=== PATIENT | female | born 1960 | race Two or more races ===

== ENCOUNTER 2019-09-20 09:58 | Outpatient (CLI) | payer OTHER | END 2019-09-20 10:01 | disposition home or self-care (01) | LOC: RX STUDY 09:58 | DX: R13.12 Dysphagia, oropharyngeal phase (principal) ==

== ENCOUNTER 2021-05-22 07:42 | Outpatient (CLI) | payer OTHER | END 2021-05-22 07:47 | disposition home or self-care (01) | LOC: RX STUDY 07:42 | PROVIDERS: ATTEND Internal Medicine Hepatology | DX: K22.89 Other specified disease of esophagus (principal) ==

== ENCOUNTER 2021-11-12 09:55 | Outpatient (CLI) | payer OTHER | END 2021-11-12 09:58 | disposition home or self-care (01) | LOC: SONOGRAMA 09:55 | PROVIDERS: ATTEND Pathology Anatomic Pathology & Clinical Pathology | DX: E04.9 Nontoxic goiter, unspecified (principal) ==

== ENCOUNTER → 2022-03-13 08:00 | Outpatient (CLI) | payer OTHER ==
[~2022-03-13] VITALS: Ht 154.9 cm; Wt 53.5 kg
[~2022-03-13 08:00] MED LIST: AMLODIPINE BESYL5 MG; AMLODIPINE-OLM1 EACH PO; AMOX-CLAV 875-1 EACH PO; CELEBREX200MG PO; CEVIMELINE HCL30 MG; DAFLONEX-XL 11300 MG; DSS100 MG; ESOMEPRAZOLE MA40 MG; FAMO PO; FAMOTIDINE40 MG PO; GABAPENTIN100 M2; INTEGRA CAPSUL1 EACH; LEVO-T25 MCG; MAXIMUM D3325 MCG; OMEPRAZOLE40 MG; PROAIR RESPICL90 MCG IH; PROTONIX40 M1 PO; ZOLPIDEM TARTRA10 MG PO; [UNRECOGNIZED DRUG - OTHER] PO
== END | disposition home or self-care (01) ==
LOC: LAB 08:00 → ADM 10:45 → SURG 03-15 07:00 → CIR.AMB 03-15 10:45 → EDSTATUS 03-15 10:45 → EDBD 03-15 10:45
PROVIDERS: ATTEND Surgery
DX: Z20.822 Contact with and (suspected) exposure to COVID-19 (principal); Z03.818 Encounter for observation for suspected exposure to other biological agents ruled out

== ENCOUNTER 2022-04-22 15:01 | Inpatient (IN) | payer OTHER ==
[~2022-04-22] VITALS: Ht 127 cm; Wt 54.4 kg
[~2022-04-22 15:01] MED LIST changes: -AMLODIPINE BESYL5 MG; -AMOX-CLAV 875-1 EACH PO; -CEVIMELINE HCL30 MG; -DAFLONEX-XL 11300 MG; -DSS100 MG; -ESOMEPRAZOLE MA40 MG; -FAMOTIDINE40 MG PO; -GABAPENTIN100 M2; -INTEGRA CAPSUL1 EACH; -LEVO-T25 MCG; -MAXIMUM D3325 MCG; -OMEPRAZOLE40 MG; -PROAIR RESPICL90 MCG IH
[2022-04-26] MEDS ORDERED: MAXIMUM D3325 MCG (11:28)
[2022-04-26] MEDS ORDERED: GABAPENTIN100 M2 (11:28)
[2022-04-26] MEDS ORDERED: FAMOTIDINE40 MG PO (11:28)
[2022-04-26] MEDS ORDERED: DAFLONEX-XL 11300 MG (11:29)
[2022-04-26] MEDS ORDERED: ESOMEPRAZOLE MA40 MG (11:29)
[2022-04-26] MEDS ORDERED: OMEPRAZOLE40 MG (11:29)
[2022-04-26] MEDS ORDERED: DSS100 MG (11:29)
[2022-04-26] MEDS ORDERED: CEVIMELINE HCL30 MG (11:29)
[2022-04-26] MEDS ORDERED: INTEGRA CAPSUL1 EACH (11:29)
[2022-04-26] MEDS ORDERED: AMLODIPINE BESYL5 MG (11:29)
[2022-04-26] MEDS ORDERED: LEVO-T25 MCG (11:29)
[2022-05-02] MEDS ORDERED: PROAIR RESPICL90 MCG IH (11:25)
[2022-05-02] MEDS ORDERED: AMOX-CLAV 875-1 EACH PO (11:26)
== END 2022-05-02 13:02 | disposition home or self-care (01) | DRG 327 ==
LOC: SURG 04-26 06:49 → O/R 04-26 06:49 → SURG 04-26 10:30
PROVIDERS: ADMIT Surgery; ATTEND Surgery
PROC: 0DQ60ZZ Repair Stomach, Open Approach (ICD-10-PCS; principal; 2022-04-27)
PROC: 0DQP0ZZ Repair Rectum, Open Approach (ICD-10-PCS; 2022-04-27)
PROC: 0DN80ZZ Release Small Intestine, Open Approach (ICD-10-PCS; 2022-04-27)
PROC: 0DNW0ZZ Release Peritoneum, Open Approach (ICD-10-PCS; 2022-04-27)
PROC: 0DTJ0ZZ Resection of Appendix, Open Approach (ICD-10-PCS; 2022-04-27)
PROC: 0WJG4ZZ Inspection of Peritoneal Cavity, Percutaneous Endoscopic Approach (ICD-10-PCS; 2022-04-27)
PROC: 4A12X4Z Monitoring of Cardiac Electrical Activity, External Approach (ICD-10-PCS; 2022-04-27)
DX: K62.3 Rectal prolapse (principal); E87.20 Acidosis, unspecified; J95.4 Chemical pneumonitis due to anesthesia; R09.02 Hypoxemia; K57.30 Diverticulosis of large intestine without perforation or abscess without bleeding; T41.0X5A Adverse effect of inhaled anesthetics, initial encounter; E83.51 Hypocalcemia; R15.9 Full incontinence of feces; R19.4 Change in bowel habit; R19.7 Diarrhea, unspecified; K66.0 Peritoneal adhesions (postprocedural) (postinfection); K38.9 Disease of appendix, unspecified; Z20.822 Contact with and (suspected) exposure to COVID-19; I10 Essential (primary) hypertension; K29.50 Unspecified chronic gastritis without bleeding; L94.0 Localized scleroderma [morphea]; Z53.31 Laparoscopic surgical procedure converted to open procedure

== ENCOUNTER 2022-09-23 10:54 | Emergency (ER) | payer OTHER ==
[~2022-09-23] VITALS: Ht 149.9 cm; Wt 51.7 kg
[~2022-09-23 10:54] MED LIST changes: +AMLODIPINE BESYL5 MG; +AMOX-CLAV 875-1 EACH PO; +CEVIMELINE HCL30 MG; +DAFLONEX-XL 11300 MG; +DSS100 MG; +ESOMEPRAZOLE MA40 MG; +FAMOTIDINE40 MG PO; +GABAPENTIN100 M2; +INTEGRA CAPSUL1 EACH; +LEVO-T25 MCG; +MAXIMUM D3325 MCG; +OMEPRAZOLE40 MG; +PROAIR RESPICL90 MCG IH
== END 2022-09-23 16:53 | disposition home or self-care (01) ==
LOC: ER 10:54
DX: R60.0 Localized edema (principal)

== ENCOUNTER 2022-11-15 17:19 | Inpatient (IN) | payer OTHER ==
[~2022-11-15] VITALS: Ht 127 cm; Wt 45.4 kg
[2022-11-17] MEDS ORDERED: FUROSEMIDE20 MG PO (10:39)
[2022-11-17] MEDS ORDERED: VALSARTAN40 MG PO (10:40)
== END 2022-11-17 12:48 | disposition home or self-care (01) | DRG 392 ==
LOC: ER 17:19 → MEDI 22:33
PROVIDERS: ADMIT Surgery; ATTEND Surgery
PROC: BW21ZZZ Computerized Tomography (CT Scan) of Abdomen and Pelvis (ICD-10-PCS; principal; 2022-11-15)
PROC: B246ZZZ Ultrasonography of Right and Left Heart (ICD-10-PCS; 2022-11-15)
PROC: 3E0F7SF Introduction of Other Gas into Respiratory Tract, Via Natural or Artificial Opening (ICD-10-PCS; 2022-11-16)
DX: K59.09 Other constipation (principal); K56.609 Unspecified intestinal obstruction, unspecified as to partial versus complete obstruction; R60.0 Localized edema; R09.02 Hypoxemia; R79.89 Other specified abnormal findings of blood chemistry; I11.0 Hypertensive heart disease with heart failure; I50.9 Heart failure, unspecified; E87.6 Hypokalemia; M34.9 Systemic sclerosis, unspecified; I73.00 Raynaud's syndrome without gangrene; Z20.822 Contact with and (suspected) exposure to COVID-19; Z87.891 Personal history of nicotine dependence

== ENCOUNTER 2023-02-05 11:46 | Inpatient (IN) | payer OTHER ==
[~2023-02-05] VITALS: Ht 129.5 cm; Wt 44.5 kg
[~2023-02-05 11:46] MED LIST changes: +FUROSEMIDE20 MG PO; +VALSARTAN40 MG PO
[2023-02-05] MEDS ORDERED: JARDIANCE10 MG PO (12:02)
[2023-02-07] MEDS ORDERED: POTASSIUM CHLOR8 MEQ (13:48)
[2023-02-11] MEDS ORDERED: PEPCID AC20 MG PO (10:03)
[2023-02-11] MEDS ORDERED: INTESTINEX680 M1 PO (10:03)
== END 2023-02-11 10:52 | disposition home or self-care (01) | DRG 392 ==
LOC: ER 11:46 → SURH 18:11
PROVIDERS: ADMIT Surgery; ATTEND Surgery
PROC: 0D9670Z Drainage of Stomach with Drainage Device, Via Natural or Artificial Opening (ICD-10-PCS; 2023-02-05)
PROC: BW21YZZ Computerized Tomography (CT Scan) of Abdomen and Pelvis using Other Contrast (ICD-10-PCS; 2023-02-05)
PROC: 3E0F7SF Introduction of Other Gas into Respiratory Tract, Via Natural or Artificial Opening (ICD-10-PCS; 2023-02-05)
PROC: 3E0336Z Introduction of Nutritional Substance into Peripheral Vein, Percutaneous Approach (ICD-10-PCS; 2023-02-06)
PROC: 0DJD8ZZ Inspection of Lower Intestinal Tract, Via Natural or Artificial Opening Endoscopic (ICD-10-PCS; principal; 2023-02-07)
DX: K31.0 Acute dilatation of stomach (principal); K63.89 Other specified diseases of intestine; R14.0 Abdominal distension (gaseous); K59.09 Other constipation; M34.89 Other systemic sclerosis

== ENCOUNTER → 2023-04-01 | Outpatient (CLI) | payer OTHER ==
[~2023-04-01] MED LIST changes: +INTESTINEX680 M1 PO; +JARDIANCE10 MG PO; +PEPCID AC20 MG PO; +POTASSIUM CHLOR8 MEQ
== END | disposition home or self-care (01) ==
LOC: RAD 10:33
DX: M50.90 Cervical disc disorder, unspecified, unspecified cervical region (principal); M51.36 Other intervertebral disc degeneration, lumbar region; M41.30 Thoracogenic scoliosis, site unspecified; M79.18 Myalgia, other site; M17.10 Unilateral primary osteoarthritis, unspecified knee

== ENCOUNTER 2023-04-18 08:07 | Outpatient (CLI) | payer OTHER | END 2023-04-18 08:16 | disposition home or self-care (01) | LOC: TOM 08:07 | PROVIDERS: ATTEND Surgery | DX: K62.89 Other specified diseases of anus and rectum (principal); R15.9 Full incontinence of feces; K62.3 Rectal prolapse; K57.30 Diverticulosis of large intestine without perforation or abscess without bleeding; R19.4 Change in bowel habit; R19.7 Diarrhea, unspecified; R14.0 Abdominal distension (gaseous); K38.8 Other specified diseases of appendix; K66.0 Peritoneal adhesions (postprocedural) (postinfection); K63.89 Other specified diseases of intestine; Z12.11 Encounter for screening for malignant neoplasm of colon ==

== ENCOUNTER 2024-02-09 10:21 | Inpatient (IN) | payer OTHER ==
[~2024-02-09] VITALS: Ht 121.9 cm; Wt 48.5 kg
[~2024-02-09 10:21] MED LIST changes: +JARDIANCE10 MG; +LASIX20 MG; +SPIRONOLACTONE25 MG
[2024-02-09] MEDS ORDERED: ONDANSETRON HCL 2 MG/ML VIAL IV STA (10:46)
[2024-02-09] MEDS ORDERED: FAMOTIDINE/PF 20 MG in 0.9 % SODIUM CHLORIDE 8 ML IV PUSH STA (10:46)
[2024-02-09] MEDS ORDERED: 0.9 % SODIUM CHLORIDE 1,000 ML IV SCH (12:00)
[2024-02-09 15:26] LABS: HEMATOCRIT 31.5 % (36.0-45.00); HEMOGLOBIN 10.3 g/dL (12.0-15.00); MEAN CELL VOLUME 79.8 fL (80.00-100.00); MEAN CORPUSCULAR HEMOGLOBIN 26.1 pg (27.00-32.0); MEAN CORPUSCULAR HGB CONC 32.7 g/dl (32.0-36.0); PLATELET COUNT 174 K/uL (150-450); RED BLOOD COUNT 3.95 M/uL (4.00-6.00); RED CELL DISTRIBUTION WIDTH 16.2 % (11.5-14.5)
[2024-02-09 15:57] LABS: CALCIUM 7.7 mg/dL (8.5-10.1); CREATININE SERUM 0.56 mg/dL (0.55-1.02); GFR 108.64; POTASSIUM 3.43 mEq/L (3.5-5.1)
[2024-02-09 17:27] LABS: URINE APPEARANCE Cloudy; URINE BILIRRUBIN Negative (NEGATIVE); URINE BLOOD Negative; URINE COLOR Yellow; URINE GLUCOSE Negative (NEGATIVE); URINE LEUKOCYTE Small; URINE NITRATE Positive; URINE PROTEIN Negative (NEGATIVE)
[2024-02-09 17:28] LABS: URINE EPITHELIAL CELLS 14.3 uL (0.0-38.8); URINE RBC 15.6 uL (0.0-20.8)
[2024-02-09 17:54] LABS: URINE BACTERIA > 9821.5 uL (0.0-1933)
[2024-02-09] MEDS ORDERED: CEFTRIAXONE SODIUM 2,000 MG in 0.9 % SODIUM CHLORIDE 100 ML IV SCH (19:14)
[2024-02-09] MEDS ORDERED: ACETAMINOPHEN 500 MG GEL..CAP PO PRN (19:15)
[2024-02-09] MEDS ORDERED: FUROsemide 20 MG/2 ML VIAL IV SCH (19:36)
[2024-02-09] MEDS ORDERED: INSULIN LISPRO 1,000 UNIT/10 ML UNITS SUBCUTANEO PRN (19:45)
[2024-02-09] MEDS ORDERED: ONDANSETRON HCL 4 MG in 0.9 % SODIUM CHLORIDE 50 ML IV PRN (19:45)
[2024-02-09] MEDS ORDERED: DEXTROSE 50 % IN WATER 0.5 G/ML DISP.SYRIN IV PRN (19:45)
[2024-02-09] MEDS ORDERED: DEXTROSE 5 %-0.45 % SOD CHLORD 1,000 ML IV SCH (19:45)
[2024-02-09 22:18] LABS: INR 1.27; PROTHROMBIN TIME 13.1 SECONDS (9.0-11.5)
[2024-02-09 22:21] LABS: MAGNESIUM 1.9 mg/dL (1.8-2.4); PHOSPHOROUS 3.4 mg/dL (2.5-4.9)
[2024-02-09 22:22] LABS: C-REACTIVE PROTEIN 0.69 MG/DL (0.00-0.29)
[2024-02-09 22:23] LABS: D DIMER 0.99 MG/L
[2024-02-09 23:33] LABS: ABG PH 7.548 (7.35-7.45); ABG PO2 176.8 mmHg (80-100); ABG pCO2 24.7 mmHg (35-45); BASE EXCESS 0.4 mmol/l; Tco2 21.8 mmol/l; o2 35 %
[2024-02-09 23:34] LABS: allen test SATISFACTORY; puncture site RADIAL RIGHT
[2024-02-09 23:35] LABS: SaO2 99.7 %
[2024-02-10] MEDS ORDERED: GLUCAGON 1 MG VIAL IV STA (02:07)
[2024-02-10] MEDS ORDERED: DEXTROSE 10 % IN WATER 1,000 ML IV STA (02:10)
[2024-02-10] MEDS ORDERED: 0.9 % SODIUM CHLORIDE 1,000 ML IV SCH (07:45)
[2024-02-10 08:28] LABS: T4 TOTAL 3.45 UG/DL (4.8-13.9)
[2024-02-10 08:32] LABS: TSH 5.42 uIU/mL (0.358-3.74)
[2024-02-10] MEDS ORDERED: PANTOPRAZOLE SODIUM 40 MG/VIAL VIAL IV SCH (09:00)
[2024-02-10] MEDS ORDERED: SOD FERRIC GLUC COMPLX/SUCROSE 62.5 MG in 0.9 % SODIUM CHLORIDE 50 ML IV SCH (09:00)
[2024-02-10] MEDS ORDERED: SPIRONOLACTONE 25 MG TABLET PO SCH (09:00)
[2024-02-10] MEDS ORDERED: GLYCERIN 2.1 GM SUPP.RECT RECTAL SCH (09:09)
[2024-02-10] MEDS ORDERED: DEXTROSE 5 % AND 0.9 % NACL 1,000 ML IV SCH (09:15)
[2024-02-11] MEDS ORDERED: LEVOTHYROXINE SODIUM 50 MCG TABLET PO SCH (06:00)
[2024-02-11] MEDS ORDERED: HYDROCORTISONE SODIUM SUCC/PF 50 MG/ML ML IV SCH (13:00)
[2024-02-11 14:33] LABS: HEMATOCRIT 30.2 % (36.0-45.00); MEAN CORPUSCULAR HEMOGLOBIN 26.4 pg (27.00-32.0); RED BLOOD COUNT 3.77 M/uL (4.00-6.00); RED CELL DISTRIBUTION WIDTH 16.3 % (11.5-14.5)
[2024-02-11 14:34] LABS: PLATELET COUNT 124 K/uL (150-450)
[2024-02-11 15:16] LABS: BILIRUBIN TOTAL 0.46 mg/dL (0.3-1.2); CALCIUM 7.8 mg/dL (8.5-10.1); CREATININE SERUM 0.49 mg/dL (0.55-1.02); GFR 126.74; GLOBULINA 3.4 G/DL (2.4-3.5); TOTAL PROTEIN 4.4 gm/dL (6.4-8.2)
[2024-02-11 15:58] LABS: POTASSIUM 2.76 mEq/L (3.5-5.1)
[2024-02-11] MEDS ORDERED: LACTULOSE 20 G/30 ML BLIST.PACK PO SCH (17:00)
[2024-02-11] MEDS ORDERED: POTASSIUM CHLORIDE 20MEQ/100ML H2O PB IV SCH (18:00)
[2024-02-12] MEDS ORDERED: ENOXAPARIN SODIUM 60 MG/0.6 ML SYRINGE SUBCUTANEO SCH (09:00)
[2024-02-13 05:50] LABS: HEMATOCRIT 28.4 % (36.0-45.00); MEAN CELL VOLUME 82.4 fL (80.00-100.00); MEAN CORPUSCULAR HGB CONC 32.8 g/dl (32.0-36.0); RED BLOOD COUNT 3.44 M/uL (4.00-6.00); RED CELL DISTRIBUTION WIDTH 16.7 % (11.5-14.5)
[2024-02-13 05:51] LABS: HEMOGLOBIN 9.3 g/dL (12.0-15.00); PLATELET COUNT 69 K/uL (150-450)
[2024-02-13 05:57] LABS: BILIRUBIN TOTAL 0.24 mg/dL (0.3-1.2); CALCIUM 7.3 mg/dL (8.5-10.1); CREATININE SERUM 0.51 mg/dL (0.55-1.02); GFR 121.02; GLOBULINA 3.2 G/DL (2.4-3.5); POTASSIUM 3.73 mEq/L (3.5-5.1); TOTAL PROTEIN 4.1 gm/dL (6.4-8.2)
[2024-02-13 06:02] LABS: ALBUMIN 0.9 gm/dL (3.4-5.0)
[2024-02-13] MEDS ORDERED: SODIUM CHLORIDE 0.45 % 1,000 ML IV SCH (07:30)
[2024-02-13] MEDS ORDERED: PANTOPRAZOLE SODIUM 40 MG TABLET.DR PO NR (14:15)
[2024-02-13] MEDS ORDERED: METHYLPREDNISOLONE SOD SUCC 40 MG VIAL IV NR (14:15)
[2024-02-13 16:44] LABS: ABG PH 7.461 (7.35-7.45); ABG PO2 194.1 mmHg (80-100); ABG pCO2 24.4 mmHg (35-45); BASE EXCESS -4.8 mmol/l; SaO2 99.7 %; Tco2 17.7 mmol/l
[2024-02-13] MEDS ORDERED: APIXABAN 5 MG TABLET PO SCH (17:00)
[2024-02-13 17:45] LABS: allen test SATISFACTORY; o2 21 %; puncture site RADIAL LEFT
[2024-02-13] MEDS ORDERED: METHYLPREDNISOLONE SOD SUCC 40 MG VIAL IV SCH (21:00)
[2024-02-13] MEDS ORDERED: FUROsemide 20 MG/2 ML VIAL IV SCH (21:00)
[2024-02-14] MEDS ORDERED: PANTOPRAZOLE SODIUM 40 MG TABLET.DR PO SCH (09:00)
[2024-02-15 14:13] LABS: HEMOGLOBIN 9.4 g/dL (12.0-15.00); MEAN CELL VOLUME 80.9 fL (80.00-100.00); MEAN CORPUSCULAR HEMOGLOBIN 26.2 pg (27.00-32.0); MEAN CORPUSCULAR HGB CONC 32.4 g/dl (32.0-36.0); RED BLOOD COUNT 3.58 M/uL (4.00-6.00); RED CELL DISTRIBUTION WIDTH 15.9 % (11.5-14.5)
[2024-02-15 14:15] LABS: PLATELET COUNT 92 K/uL (150-450)
[2024-02-15 14:46] LABS: ALBUMIN 1.1 gm/dL (3.4-5.0); BILIRUBIN TOTAL 0.35 mg/dL (0.3-1.2); CALCIUM 7.9 mg/dL (8.5-10.1); CREATININE SERUM 0.64 mg/dL (0.55-1.02); GFR 93.13; GLOBULINA 3.5 G/DL (2.4-3.5); POTASSIUM 3.26 mEq/L (3.5-5.1); TOTAL PROTEIN 4.6 gm/dL (6.4-8.2)
[2024-02-15] MEDS ORDERED: AMLODIPINE BESYLATE 2.5 MG TABLET PO SCH (17:00)
[2024-02-16] MEDS ORDERED: POTASSIUM CHLORIDE IN WATER 40 MEQ/100 ML PIGGYBAG IV NR (10:33)
[2024-02-16] MEDS ORDERED: AMINO ACIDS/PROTEIN HYDROLYS 30 ML BLIST.PACK PO SCH (10:34)
[2024-02-16] MEDS ORDERED: ELIQUIS5 MG PO (11:09)
[2024-02-16] MEDS ORDERED: SPIRONOLACTONE25 MG PO (11:10)
[2024-02-16] MEDS ORDERED: NORVASC2.5 M1 PO (11:10)
[2024-02-16] MEDS ORDERED: SERTRALINE HCL50 MG PO (11:12)
[2024-02-16] MEDS ORDERED: PANTOPRAZOLE SO40 MG PO (11:13)
[2024-02-16] MEDS ORDERED: LACTULOSE10 GM/152 PO (11:13)
[2024-02-16] MEDS ORDERED: FUROSEMIDE20 MG PO (11:13)
[2024-02-16] MEDS ORDERED: JARDIANCE10 MG PO (11:14)
[2024-02-16] MEDS ORDERED: LEVOTHYROXINE50 MCG PO (11:14)
[2024-02-16] MEDS ORDERED: PREDNISONE20 MG PO (11:15)
[2024-02-16] MEDS ORDERED: PROTEINEX-18 LI30 ML PO (11:15)
[2024-02-16] MEDS ORDERED: CARVEDILOL3.125 MG PO (11:18)
[2024-02-16] MEDS ORDERED: SIMVASTATIN5 MG PO (11:19)
[2024-02-16] MEDS ORDERED: FUROsemide 20 MG TABLET PO SCH (12:00)
[2024-02-16] MEDS ORDERED: PREDNISONE 20 MG TABLET PO SCH (12:00)
[2024-02-16] MEDS ORDERED: SERTRALINE HCL 50 MG TABLET PO SCH (12:00)
[2024-02-16] MEDS ORDERED: Dextrose ORAL GEL 37.5GM GEL PO ONE (18:05)
[2024-02-16] MEDS ORDERED: DEXTROSE 50 % IN WATER 0.5 G/ML DISP.SYRIN IV ONE (18:05)
[2024-02-16] MEDS ORDERED: PROMETHAZINE HCL 25 MG/ML AMPUL ONE (21:57)
[2024-02-16] MEDS ORDERED: PROMETHAZINE HCL 50 MG/ML AMPUL IM ONE (22:00)
[2024-02-17] MEDS ORDERED: HYDROCORTISONE SODIUM SUCC/PF 100 MG VIAL IV STA (02:43)
[2024-02-17] MEDS ORDERED: HYDROCORTISONE SODIUM SUCC/PF 100 MG VIAL ONE (02:44)
[2024-02-17] MEDS ORDERED: DOPamine HCL 400MG/D5w 250ML PLAST..BAG IV ONE (02:45)
[2024-02-17] MEDS ORDERED: NOREPINEPHRINE BITARTRATE 1 MG/ML AMPUL IV ONE (03:45)
[2024-02-17] MEDS ORDERED: FUROsemide 20 MG/2 ML VIAL IV STA (04:00)
[2024-02-17] MEDS ORDERED: NOREPINEPHRINE BITARTRATE 8 MG in DEXTROSE 5 % IN WATER 250 ML IV SCH (04:00)
[2024-02-17] MEDS ORDERED: DOPamine HCL IN DEXTROSE 5 % 250 ML IV SCH (04:00)
[2024-02-17] MEDS ORDERED: HYDROCORTISONE SODIUM SUCC/PF 100 MG VIAL IV SCH (04:03)
[2024-02-17] MEDS ORDERED: DEXTROSE 5 % AND 0.9 % NACL 1,000 ML IV SCH (04:15)
[2024-02-17] MEDS ORDERED: MEROPENEM 500 MG/VIAL VIAL IV SCH (06:00)
== END 2024-02-17 10:06 | disposition expired | DRG 690 ==
LOC: ER 10:21 → MEDI 20:17 → SEC-K 20:17 → ICU-2 02-10 03:01 → SEC-K 02-10 09:24 → MEDI 02-10 10:36
PROVIDERS: Emergency Medicine; General Practice; Internal Medicine Endocrinology, Diabetes & Metabolism; ADMIT Internal Medicine; ATTEND Internal Medicine
PROC: BW28ZZZ Computerized Tomography (CT Scan) of Head (ICD-10-PCS; principal; 2024-02-09)
PROC: BW21ZZZ Computerized Tomography (CT Scan) of Abdomen and Pelvis (ICD-10-PCS; 2024-02-09)
PROC: BW24ZZZ Computerized Tomography (CT Scan) of Chest and Abdomen (ICD-10-PCS; 2024-02-10)
PROC: 4A12X4Z Monitoring of Cardiac Electrical Activity, External Approach (ICD-10-PCS; 2024-02-10)
PROC: B24BZZZ Ultrasonography of Heart with Aorta (ICD-10-PCS; 2024-02-11)
PROC: B54PZZZ Ultrasonography of Bilateral Upper Extremity Veins (ICD-10-PCS; 2024-02-11)
PROC: B54DZZZ Ultrasonography of Bilateral Lower Extremity Veins (ICD-10-PCS; 2024-02-13)
DX: N39.0 Urinary tract infection, site not specified (principal); E46 Unspecified protein-calorie malnutrition; I96 Gangrene, not elsewhere classified; I82.A11 Acute embolism and thrombosis of right axillary vein; I82.622 Acute embolism and thrombosis of deep veins of left upper extremity; B96.20 Unspecified Escherichia coli [E. coli] as the cause of diseases classified elsewhere; M34.9 Systemic sclerosis, unspecified; E16.1 Other hypoglycemia; D64.9 Anemia, unspecified; E03.9 Hypothyroidism, unspecified; E87.6 Hypokalemia; I87.2 Venous insufficiency (chronic) (peripheral); D69.6 Thrombocytopenia, unspecified